=== PATIENT | male | born 1955 | race Caucasian/White ===

== ENCOUNTER 2017-10-19 18:14 | Emergency (ER) | payer SELFPAY ==
[2017-10-19] MEDS ORDERED: Acetaminophen/oxyCODONE 325-5 MG Tab PO ONE (18:35)
--- NOTE | 2017-10-19 20:27 | EDM.PDOC ---
ED HPI GENERAL MEDICAL PROBLEM - General Chief Complaint: Upper Extremity Injury/Pain Stated Complaint: BROKEN COLLAR BONE Time Seen by Provider: 10/19/17 18:27 Source of Information: Reports: Patient, RN Notes Reviewed - History of Present Illness INITIAL COMMENTS - FREE TEXT/NARRATIVE: 62 year old male got bucked off of horse, severe R clavicular pain. severe pain with motion of RUE. some pain R back just below scapula. Does not feel short of breath. Neck feels very mildly stiff. No Olivera, no LOC, no abd pain, nausea or vomiting. Treatments TRANSPLANT COORDINATOR: Reports: Other (see below) Other Treatments TRANSPLANT COORDINATOR: sling right shoulder/arm Pain Score (Numeric/FACES): 6 - Related Data Allergies Allergy/AdvReac Type Severity Reaction Status Date / Time No Known Allergies Allergy Verified 10/19/17 18:27 Home Meds: Home Meds oxyCODONE HCl/Acetaminophen [Percocet 5-325 mg Tablet] 1 each PO Q6HR PRN #20 tablet 10/19/17 [Rx] Past Medical History - Past Health History Medical/Surgical History: Denies Medical/Surgical History Musculoskeletal History: Reports: Other (See Below) Other Musculoskeletal History: multiple broken bones - Past Surgical History HEENT Surgical History: Reports: Tonsillectomy Musculoskeletal Surgical History: Reports: Other (See Below) Other Musculoskeletal Surgeries/Procedures:: titanium maria luisa to right leg Social & Family History - Family History Family Medical History: Noncontributory - Tobacco Use Smoking Status *Q: Never Smoker - Caffeine Use Caffeine Use: Reports: Coffee - Recreational Drug Use Recreational Drug Use: No Review of Systems - Review of Systems Review Of Systems: See Below Constitutional: Reports: No Symptoms Eyes: Reports: No Symptoms Ears: Reports: No Symptoms Nose: Reports: No Symptoms Mouth/Throat: Reports: No Symptoms Respiratory: Denies: Shortness of Breath, Pleuritic Chest Pain Cardiovascular: Denies: Chest Pain GI/Abdominal: Denies: Abdominal Pain, Nausea, Vomiting Musculoskeletal: Reports: Arm Pain, Joint Pain (medial to R shoulder, R mid scapula). Denies: Neck Pain, Leg Pain Skin: Reports: Bruising (mid scapula) Neurological: Denies: Dizziness, Headache, Numbness, Syncope, Tingling, Trouble Speaking, Difficulty Walking, Weakness ED EXAM, GENERAL - Physical Exam Exam: See Below General Appearance: Alert, Moderate Distress Eye Exam: Bilateral Eye: PERRL Ear Exam: Bilateral Ear: Auricle Normal Nose: Normal Inspection Throat/Mouth: Normal Inspection Head: Atraumatic. No: Facial Swelling Neck: Supple, Full Range of Motion. No: Tender Lateral, Tender Midline Respiratory/Chest: No Respiratory Distress, Lungs Clear, Normal Breath Sounds Cardiovascular: Regular Rate, Rhythm GI/Abdominal: Soft, Non-Tender Back Exam: Other (there is tenderness of the R back just below the scapula). No : Paraspinal Tenderness, Vertebral Tenderness Extremities: Other (moderate tenderness of R mid scapula, swelling, bruising present) Neurological: Oriented, No Motor/Sensory Deficits Skin Exam: Warm, Dry, Normal Color Course - Vital Signs Last Recorded V/S: Last Vital Signs Temp 98.3 F 10/19/17 18:20 Pulse 63 10/19/17 18:20 Resp 18 10/19/17 18:20 BP 148/109 H 10/19/17 18:20 Pulse Ox 98 10/19/17 18:20 - Orders/Labs/Meds Orders: Active Orders 24 hr Category Date Time Status Communication Order [RC] STAT Care 10/19/17 20:14 Active Chest 1V Frontal [CR] Stat Exams 10/19/17 18:36 Taken Clavicle Rt [CR] Stat Exams 10/19/17 18:36 Taken Meds: Medications Discontinued Medications Generic Name Dose Route Start Last Admin Trade Name Luisa PRN Reason Stop Dose Admin Oxycodone/Acetaminophen 1 tab 10/19/17 18:35 10/19/17 18:43 Percocet 325-5 Mg PO 10/19/17 18:36 1 tab ONETIME ONE Administration - Re-Assessments/Exams Free Text/Narrative Re-Assessment/Exam: 10/19/17 22:31 comminuted fx R clavicle, see Radiology report for details, CXR nl, discharge instr. as documented. Departure - Departure Time of Disposition: 20:21 Disposition: Home, Self-Care 01 Condition: Fair Clinical Impression: Fracture of clavicle Qualifiers: Encounter type: initial encounter Clavicle location: shaft Fracture type: closed Fracture alignment: displaced Laterality: right Qualified Code(s): S42.021A - Displaced fracture of shaft of right clavicle, initial encounter for closed fracture - Discharge Information Prescriptions: oxyCODONE HCl/Acetaminophen [Percocet 5-325 mg Tablet] 1 each PO Q6HR PRN #20 tablet PRN Reason: Pain Instructions: Clavicle Fracture, [id number] Referrals: PCP,None [Primary Care Provider] - Forms: ED Department Discharge Additional Instructions: sling and swathe R arm, ice packs several times daily for swelling. Avoid lifting R arm, avoid further injury. See Dr Morales, Orthopedist tomorrow or Tuesday if possible, call [phone] tomorrow morning for first available appt. Tylenol for mild to moderate pain or percocet for severe pain. If the full dose percocet seems like too much you can try taking 1/2 tablet q 6 to 8 hr as needed. - My Orders Last 24 Hours: My Active Orders 10/19/17 18:36 Chest 1V Frontal [CR] Stat Clavicle Rt [CR] Stat 10/19/17 20:14 Communication Order [RC] STAT - Assessment/Plan Last 24 Hours: My Active Orders 10/19/17 18:36 Chest 1V Frontal [CR] Stat Clavicle Rt [CR] Stat 10/19/17 20:14 Communication Order [RC] STAT
--- NOTE | 2017-10-20 10:19 | CR ---
Chest: Frontal view of the chest was obtained. Comparison: No prior chest x-ray. Heart size is normal. Upper mediastinum is normal. Right clavicle fracture is seen which shows mild displacement. Slight deformity to several right-sided ribs which is believed to represent old healed fractures. Lungs are clear without acute parenchymal densities. Impression: 1. Right clavicle fracture. Please correlate if this is acute. 2. Several old appearing healed rib fractures on the right side. 3. Nothing acute is otherwise seen on frontal chest x-ray. Diagnostic code #3
--- NOTE | 2017-10-20 10:19 | CR ---
Right clavicle: Two views of the right clavicle were obtained. Slightly comminuted and displaced mid right clavicle fracture is noted. No callus is seen. Acromioclavicular alignment appears within normal limits. No additional abnormality is seen. Impression: 1. Right clavicle fracture as noted above. Diagnostic code #3
== END 2017-10-19 20:43 | disposition home or self-care (01) ==
LOC: JD.ED 18:14
DX: S42.021A Displaced fracture of shaft of right clavicle, initial encounter for closed fracture (principal); V80.010A Animal-rider injured by fall from or being thrown from horse in noncollision accident, initial encounter
CPT/HCPCS: 71045; 73000; 99283; A9270

== ENCOUNTER 2017-10-25 07:05 | Day surgery (SDC) | payer SELFPAY ==
--- NOTE | 2017-10-24 10:27 | HP ---
DATE OF ADMISSION: 10/25/2017 HISTORY: This is the first orthopedic admission to [facility] for this 62-year- old male who is being evaluated for surgical correction of a severely displaced fragment and a right clavicle fracture. The patient suffered the injury on October 19 secondary to a horse accident. The patient was then seen through the Orthopedic Clinic. I went over x-rays with the patient and the surgical procedure. He understands and has consented to surgery. ALLERGIES: No known drug allergies. CURRENT MEDICATIONS: A healthy 62-year-old male, currently on no medications. PAST MEDICAL HISTORY: Has a negative bleeding history and negative blood clot history. PAST SURGICAL HISTORY: Positive. He had a positive surgical plate fixation of a right ankle injury with no anesthesia complications. SOCIAL HISTORY: nonsmoker. Alcohol is infrequent. PHYSICAL EXAMINATION: GENERAL: Today, reveals a well-developed, well-nourished, 62-year-old male in moderate distress. HEAD, EYES, EARS, NOSE AND THROAT: Normocephalic. NECK: Supple. CHEST: Clear. COR: Regular rate. ABDOMEN: Soft. : Intact. EXTREMITIES: Examination of the right shoulder reveals positive pain to pressure over the midshaft, right clavicle area, positive hematoma, ecchymosis formation and swelling noted about the fracture. RADIOLOGY: X-rays reviewed shows a midshaft fracture of right clavicle with significant displacement and tenting, positive fragmentation, comminution. OVERALL IMPRESSION: Fracture, right clavicle, unstable. PLAN: Plan is for the patient to undergo surgical open reduction and internal fixation of the clavicle fracture. Procedure has been outlined to him. He understands procedure and has consented to it. ERLIN /[id number]
[~2017-10-25 07:05] MED LIST: Lactated Ringers 1,000 ML IV SCH; Lidocaine 1%/Sod Bicarbonate in NS 8.4% 1 ML Syringe IDERM PRN; Sodium Chloride 0.9% 10 ML Syringe FLUSH PRN
[2017-10-25] MEDS ORDERED: Propofol 200 MG/20 ML SDV ONE (07:16)
[2017-10-25] MEDS ORDERED: Lactated Ringers 1,000 ML ONE ×4 (07:16→11:03)
[2017-10-25] MEDS ORDERED: Dexamethasone 4 MG/ML SDV ONE ×2 (07:16→09:05)
[2017-10-25] MEDS ORDERED: Rocuronium 50 MG/5 ML Vial ONE (07:16)
[2017-10-25] MEDS ORDERED: Midazolam 1 MG/ML 2 ML SDV ONE (07:16)
[2017-10-25] MEDS ORDERED: ceFAZolin 1 GM Vial ONE (07:16)
[2017-10-25] MEDS ORDERED: fentaNYL 250 MCG/5 ML SDV ONE (07:17)
[2017-10-25] MEDS ORDERED: Lidocaine 1% 4 ML ONE (07:17)
[2017-10-25] MEDS ORDERED: Ondansetron 4 MG/2 ML SDV ONE (07:21)
[2017-10-25] MEDS ORDERED: Ketorolac 30 MG/ML SDV ONE ×2 (07:21→09:05)
--- NOTE | 2017-10-25 07:54 | PCM.PREANE ---
Preanesthetic Assessment - Procedure Proposed Procedure: ORIF right clavicle fracture - Anesthesia/Transfusion/Family Hx Anesthesia History: Prior Anesthesia Without Reaction Family History of Anesthesia Reaction: No Transfusion History: No Prior Transfusion(s) - Review of Systems General: No Symptoms Pulmonary: No Symptoms Cardiovascular: No Symptoms Gastrointestinal: No Symptoms Neurological: No Symptoms Other: Reports: Neck Pain (Neck is sore from fall. Has full extension. ) - Physical Assessment NPO Status Date: 10/24/17 NPO Status Time: 21:00 O2 Sat by Pulse Oximetry: 97 Respiratory Rate: 16 Vital Signs: Last Vital Signs Temp Pulse 62 10/25/17 07:05 Resp 16 10/25/17 07:05 BP 134/80 10/25/17 07:05 Pulse Ox 97 10/25/17 07:05 Height: 1.87 m Weight: 102.965 kg ASA Class: 2 Mental Status: Alert & Oriented x3 Airway Class: Mallampati = 2 Dentition: Reports: Partial (Upper) Thyro-Mental Finger Breadths: 3 Mouth Opening Finger Breadths: 3 ROM/Head Extension: Full Lungs: Clear to Auscultation, Normal Respiratory Effort Cardiovascular: Regular Rate, Regular Rhythm - Allergies Allergies/Adverse Reactions: Allergies Allergy/AdvReac Type Severity Reaction Status Date / Time No Known Allergies Allergy Verified 10/25/17 07:47 - Anesthesia Plan Pre-Op Medication Ordered: Anxiolytic - Acknowledgements Anesthesia Type Planned: General Anesthesia Pt an Appropriate Candidate for the Planned Anesthesia: Yes Alternatives and Risks of Anesthesia Discussed w Pt/Guardian: Yes Pt/Guardian Understands and Agrees with Anesthesia Plan: Yes PreAnesthesia Questionnaire - Past Health History Medical/Surgical History: Denies Medical/Surgical History Musculoskeletal History: Reports: Other (See Below) Other Musculoskeletal History: multiple broken bones - Past Surgical History HEENT Surgical History: Reports: Tonsillectomy Musculoskeletal Surgical History: Reports: Arthroscopic Knee, Other (See Below) Other Musculoskeletal Surgeries/Procedures:: titanium maria luisa to right leg, left ankle surgery, - SUBSTANCE USE Smoking Status *Q: Never Smoker Recreational Drug Use History: No - HOME MEDS Home Medications: Home Meds oxyCODONE HCl/Acetaminophen [Percocet 5-325 mg Tablet] 1 each PO Q6HR PRN #20 tablet 10/19/17 [Rx] - CURRENT (IN HOUSE) MEDS Current Meds: Current Medications Lactated Ringer's (Ringers, Lactated) 1,000 mls @ 125 mls/hr IV ASDIRECTED ЕЛЕНА Stop: 10/25/17 23:00 Last Admin: 10/25/17 07:30 Dose: 125 mls/hr Lidocaine/Sodium Bicarbonate (Buffered Lidocaine 1% In Ns 8.4%) 0.25 ml IDERM ONETIME PRN PRN Reason: Prior to IV Start Stop: 10/25/17 18:00 Last Admin: 10/25/17 07:29 Dose: 0.25 ml Sodium Chloride (Saline Flush) 10 ml FLUSH ASDIRECTED PRN PRN Reason: Keep Vein Open Stop: 10/25/17 18:00 Discontinued Medications Bupivacaine HCl/Epinephrine Bitart (Marcaine 0.5%/Epinephrine 1:200,000) Confirm Administered Dose 50 ml .ROUTE .STK-MED ONE Stop: 10/25/17 07:25 Cefazolin Sodium (Ancef) Confirm Administered Dose 2 gm .ROUTE .STK-MED ONE Stop: 10/25/17 07:17 Dexamethasone (Dexamethasone) Confirm Administered Dose 4 mg .ROUTE .STK-MED ONE Stop: 10/25/17 07:17 Fentanyl (Sublimaze) Confirm Administered Dose 250 mcg .ROUTE .STK-MED ONE Stop: 10/25/17 07:18 Lactated Ringer's (Ringers, Lactated) Confirm Administered Dose 1,000 mls @ as directed .ROUTE .STK-MED ONE Stop: 10/25/17 07:17 Lidocaine HCl (Xylocaine-Mpf 1%) Confirm Administered Dose 4 mls @ as directed .ROUTE .STK-MED ONE Stop: 10/25/17 07:18 Iodine (Iodine 2% Mild Tincture) Confirm Administered Dose 30 ml .ROUTE .STK- MED ONE Stop: 10/25/17 07:25 Ketorolac Tromethamine (Toradol) Confirm Administered Dose 30 mg .ROUTE .STK- MED ONE Stop: 10/25/17 07:22 Midazolam HCl (Versed 1 Mg/Ml) Confirm Administered Dose 2 mg .ROUTE .STK-MED ONE Stop: 10/25/17 07:17 Ondansetron HCl (Zofran) Confirm Administered Dose 4 mg .ROUTE .STK-MED ONE Stop: 10/25/17 07:22 Propofol (Diprivan 20 Ml) Confirm Administered Dose 400 mg .ROUTE .STK-MED ONE Stop: 10/25/17 07:17 Rocuronium [place] (Zemuron) Confirm Administered Dose 50 mg .ROUTE .STK-MED ONE Stop: 10/25/17 07:17
[2017-10-25] MEDS ORDERED: Acetaminophen/oxyCODONE 325-5 MG Tab PO PRN (08:14)
[2017-10-25] MEDS ORDERED: Cyclobenzaprine 10 MG Tab PO PRN (08:14)
[2017-10-25] MEDS ORDERED: Ondansetron 4 MG/2 ML SDV IVPUSH PRN ×2 (08:14→09:36)
[2017-10-25] MEDS ORDERED: Ketorolac 15 MG/ML SDV IVPUSH PRN (08:14)
[2017-10-25] MEDS ORDERED: Morphine 15 MG Tab.ER PO SCH (08:15)
[2017-10-25] MEDS: Iodine/Sodium Iodide 2% Tincture 30 ML Bottle ONE ×2 (08:18→10:19)
[2017-10-25] MEDS: Bupivacaine 0.5%/EPINEPHrine 1:200,000 50 ML MDV ONE ×2 (08:18→11:06)
[2017-10-25] MEDS ORDERED: HYDROmorphone 0.5 MG/0.5 ML Syringe ONE ×2 (09:01→09:22)
[2017-10-25] MEDS ORDERED: Ketamine 500 mg/10 ML MDV ONE (09:05)
[2017-10-25] MEDS ORDERED: diphenhydrAMINE 50 MG/ML SDV IVPUSH PRN (09:36)
[2017-10-25] MEDS ORDERED: HYDROmorphone 0.5 MG/0.5 ML Syringe IVPUSH PRN (09:36)
[2017-10-25] MEDS ORDERED: fentaNYL 100 MCG/2 ML SDV IVPUSH PRN (09:36)
[2017-10-25] MEDS ORDERED: Meperidine PF 50 MG/ML Syringe IVPUSH PRN (09:36)
[2017-10-25] MEDS ORDERED: Phenylephrine 1% 10 MG/ML SDV ONE (09:39)
--- NOTE | 2017-10-25 11:36 | PCM.POSTAN ---
POST ANESTHESIA ASSESSMENT - MENTAL STATUS Mental Status: Somnolent - VITAL SIGNS Pulse Rate: 88 SaO2: 95 Resp Rate: 12 Blood Pressure: 137/83 Temperature: 36.8 C - RESPIRATORY Respiratory Status: Respiratory Rate WNL, Airway Patent, O2 Saturation Stable, Supplemental Oxygen - CARDIOVASCULAR CV Status: Pulse Rate WNL, Blood Pressure Stable - GASTROINTESTINAL GI Status: No Symptoms - PAIN Pain Score: 0 - POST OP HYDRATION Hydration Status: Adequate & Stable
--- NOTE | 2017-10-25 11:52 | CR ---
Right clavicle: Three fluoroscopic spot views were obtained of the right clavicle utilizing C-arm device. Comparison: Prior right clavicle study of 10/19/17. Previous clavicle fracture has been reduced and affixed with plate and screws. Fluoroscopy time is given as 15.2 seconds. Impression: 1. Reduction and fixation of previous clavicle fracture. Diagnostic code #2
--- NOTE | 2017-10-25 13:11 | PCM48HPAN ---
Post Anesthesia Note - EVALUATION WITHIN 48HRS OF ANESTHETIC Vital Signs in Normal Range: Yes Patient Participated in Evaluation: Yes Respiratory Function Stable: Yes Airway Patent: Yes Cardiovascular Function Stable: Yes Hydration Status Stable: Yes Pain Control Satisfactory: Yes Nausea and Vomiting Control Satisfactory: Yes Mental Status Recovered: Yes
--- NOTE | 2017-10-26 08:14 | OR ---
DATE OF OPERATION: 10/25/2017 SURGEON: Chin Clark MD PREOPERATIVE DIAGNOSIS: Comminuted midshaft fracture of right clavicle, displaced. POSTOPERATIVE DIAGNOSIS: Comminuted midshaft fracture of right clavicle, displaced. ANESTHESIA: General. OPERATION PERFORMED: Open reduction and internal fixation of right clavicle fracture by plate fixation and fixation of a butterfly fragment. DESCRIPTION OF PROCEDURE: The patient was taken to the operating room in supine position and placed under general anesthesia, was then placed in the beach chair position approximately 60 degrees. Once in position, the operation proceeded with prepping and draping of the right shoulder in and around the surgical site and on the neck and down the arm according to standard fashion. After prepping and draping, the operation proceeded with palpation of the clavicle. The patient had a significantly superior displaced proximal fragment and depressed distal fragment. The incision was a curved incision, centering on the proximal fragment near the sternum and centered over the clavicle near the AC joint. The curved then was carried out to recreate the gentle curve of the clavicle. Penetration was made through the skin and subcutaneous tissues. Bleeding was controlled with electrocautery. Once the clavicle was exposed, soft tissues then dissected in periosteum by using a periosteal elevator on the distal and proximal portion. The patient appeared to have a previously old fracture clavicle that showed significant scarring in and around the clavicle area on the distal fragment portion right near the fracture site itself. This needed a little extra exposure but once that was completed, there was a large butterfly fragment coming off the superolateral type side and also several multiple very small fragments on the posteroinferior side. The clavicle after exposure and removal, hematoma was then reduced into position. There was significant tightness on the clavicle due to the muscle retraction with the patient but once the clavicle was brought into approximate position forward for plating, it was then held in place by a screw fixation for an 8-hole plate. The 1st screw was then placed just medial to the area of the comminution and the butterfly fragment to hold the plate in position. The plate was then placed down on the proximal fragment and then by using our manipulation and K-wires using the K-wire holes on the plate, the distal fragment was then approximated to the proximal fragment and then held in place with the K-wires and bone clamp and once that was accomplished, a 2nd screw was then placed on the distal fragment to hold the plate in relatively good position. With the bone clamp holding the fracture together and the K- wires, the operation was proceeded with screw fixation of the plate on the more medial proximal fragment and then also in the distal fragment using locking screw interrupted. Once the plate was fixated with the screws, the operation proceeded then with addressing the butterfly fragment. This was a long skinny- type fragment in that anterior inferior position and it was opted that we would use a bone graft. The putty-type bone graft was then placed into the wound in the fracture area on the superior or inferior surface and packed into the fracture cleft. Then with the butterfly fragment was then reduced into the position using #5 FiberWire in a cerclage fashion. The fragment was then held in place to compress the bone graft into the fracture site itself, completing the reduction and also fixation of the fracture clavicle. Once that was completed, the rest of the screw holes were then filled. The patient's arm was then checked with motion and was found to be stable. No movement or any changes developed with the fracture with the plate holding securely. The irrigation was then carried out with thorough irrigation of the wound. Deep fascia tissues were closed with #1 Vicryl, subcutaneous tissue with 2-0 Vicryl and skin with skin rodriguez. Standard dressings were applied to the shoulder and the patient was placed in a right shoulder immobilizer. The patient tolerated the procedure well. He left the operating room in stable condition to his room for recovery. ESTIMATED BLOOD LOSS: ERLIN /[id number] SAMI
== END 2017-10-25 13:42 | disposition home or self-care (01) ==
LOC: JD.SDS 07:05
PROVIDERS: ATTEND Specialist
DX: S42.021A Displaced fracture of shaft of right clavicle, initial encounter for closed fracture (principal); W55.19XA Other contact with horse, initial encounter
CPT/HCPCS: 23515; 76000; A9270; C1713; J0690; J1100; J1170; J1885; J2001; J2250; J2370; J2405; J3010; J7120; 00450; J2704

== ENCOUNTER 2019-02-20 14:12 | Emergency (ER) | payer OTHER ==
[2019-02-20] MEDS ORDERED: Sodium Chloride 0.9% 10 ML Syringe FLUSH PRN (14:17)
[2019-02-20] MEDS ORDERED: Iopamidol 612 MG/ML 100 ML Bottle IVPUSH ONE (14:33)
[2019-02-20] MEDS ORDERED: Sodium Chloride 0.9% 10 ML Syringe FLUSH ONE (14:33)
--- NOTE | 2019-02-20 14:43 | PCM.SN ---
- Free Text/Narrative Note: 1415 Called to [facility] assist with patient assessment. Lab draw. Out of room at 1430.
--- NOTE | 2019-02-20 15:49 | CT ---
CT chest Technique: Multiple axial sections were obtained from above the lung apices inferiorly through the lung bases. Intravenous contrast was utilized. Comparison: Prior chest x-ray of 10/19/17 is available. Findings: Mediastinum and hilar regions appear within normal limits. No aneurysm is seen. No mediastinal adenopathy is seen. Soft tissue swelling is seen around the lower sternum. There is minimal cortical irregularity in this region which is felt compatible with nondisplaced distal sternal fracture. No pericardial fluid is seen. No pneumothorax is identified. No pleural effusions are seen. Increased density within both lung bases are seen posteriorly most likely due to atelectasis. Plate and screws affix an old right clavicle fracture. Slight deformity is seen within the lateral 7th through 9th ribs compatible with nondisplaced fractures. Possible fracture within the 10th rib. Possible nondisplaced fracture within the left 4th rib. No additional rib abnormality is appreciated. Old ununited fracture is noted within the left anterior 3rd rib. Slight compression deformities are seen within the spine with no acute fracture line and these presumably are old. Impression: 1. Nondisplaced lower sternal fracture with surrounding soft tissue swelling. 2. 3 and possibly 4 right rib fractures seen on the right side. Possible single left sided rib fracture. 3. Mild atelectasis is seen posteriorly within both bases. 4. No pneumothorax or pleural effusions are seen. 5. Old ununited left 3rd rib fracture is seen anteriorly. Diagnostic code #3 CT abdomen and pelvis Technique: Multiple axial sections were obtained from above the dome of the diaphragm inferiorly through the pubic symphysis. Intravenous contrast was utilized. No oral contrast has been given. Comparison: No prior abdominal imaging. Findings: Liver contains no focal abnormality. Cyst is noted within the spleen measuring 3.0 cm which is most likely benign. Small hiatal hernia is seen. Adrenal glands show no nodule. Kidneys show symmetric contrast enhancement without hydronephrosis or mass. Pancreas is within normal limits. Gallbladder contains no calcified gallstones. Aorta shows no aneurysm. No retroperitoneal adenopathy or mesenteric abnormalities are seen. No pelvic mass or adenopathy is seen. Delayed images shows contrast excretion from both kidneys into nondilated ureters as well as contrast within the bladder. No contrast extravasation is seen. Appendix not visualized with certainty. Slight compression deformities are seen within L2, L3 and L4. No definite acute fracture lines are seen and these may be old. Old pelvic rami fractures are seen. Compression screw is noted within the right hip. No definite acute pelvic fracture is appreciated. Impression: 1. Findings as noted above compatible with old trauma as well as other findings believed to be incidental. No acute intra-abdominal or intrapelvic abnormality is seen. Diagnostic code #3
[2019-02-20] MEDS ORDERED: HYDROmorphone 0.5 MG/0.5 ML Syringe IVPUSH ONE (15:59)
--- NOTE | 2019-02-20 16:10 | CT ---
Head CT Technique: Multiple axial sections through the brain were obtained. Intravenous contrast was not utilized. Comparison: No previous intracranial imaging. Small areas of subcutaneous hematoma is seen within the anterior scalp. Scalp injury is also noted with soft tissue air within the scalp. Ventricles along with basal cisterns and sulci over the convexities are within normal limits for the patient's age. No abnormal parenchymal densities are seen. No evidence of intracranial hemorrhage. No midline shift or mass effect is seen. No calvarial fracture is seen. Visualized paranasal sinuses shows mild mucosal thickening/lobulated retention cyst within the left maxillary sinus. Mastoid sinuses are clear. Nasal bone fracture is seen. I believe that this is most likely old as the margins are somewhat smooth. Impression: 1. Mild scalp hematomas anteriorly. Scalp injury is also noted anteriorly. 2. No acute intracranial abnormality is seen. No skull fracture is identified. 3. Left maxillary sinus finding which is pre-existing and chronic. Diagnostic code #3
--- NOTE | 2019-02-20 16:10 | CT ---
CT cervical spine Technique: Multiple axial sections were obtained from above C2 inferiorly to the mid T2 level. Reconstructed sagittal and coronal images were reviewed. Comparison: No prior cervical spine imaging. Findings: Posterior disc space narrowing is seen at C4-5 and C5-6. Mild anterior wedging is noted of C7 which appears to be old as no acute fracture line is seen. Degenerative change is noted between the dens and anterior arch of C1. Fracture is seen within the articular pillar on the right side at C3 which involves the apophyseal joint. This fracture is slightly comminuted. No additional fracture is seen within the posterior ring at this level. The right apophyseal joint is slightly widened at this level which is felt compatible with probable capsular rupture. No additional cervical spine fracture is seen. Ligamentum nuchal calcification is seen. Impression: 1. Slightly comminuted fracture involving the articular pillar on the right side at C3 which involves the apophyseal joint. Apophyseal joint on the right side is slightly widened compatible with capsular rupture. No other fracture is seen within the posterior ring at this level. 2. Degenerative change as noted above. Incidental ligamentum nuchal calcification. 3. Anterior wedging of C7 without acute fracture line and this is most likely old. 4. No other acute abnormality is seen. Diagnostic code #5
[2019-02-20] MEDS ORDERED: Lidocaine 1% 20 ML MDV INJECT ONE (16:50)
[2019-02-20] MEDS ORDERED: Lidocaine 1% 50 ML MDV ONE (16:55)
[2019-02-20] MEDS ORDERED: Lidocaine 1% 50 ML MDV INJECT ONE (16:58)
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
== END 2019-02-20 19:01 | disposition home or self-care (01) ==
LOC: JD.ED 14:12
DX: S22.41XA Multiple fractures of ribs, right side, initial encounter for closed fracture (principal); S12.200A Unspecified displaced fracture of third cervical vertebra, initial encounter for closed fracture; S22.22XA Fracture of body of sternum, initial encounter for closed fracture; S01.01XA Laceration without foreign body of scalp, initial encounter; S30.811A Abrasion of abdominal wall, initial encounter; V95.9XXA Unspecified aircraft accident injuring occupant, initial encounter
CPT/HCPCS: 12005; 36415; 70450; 71260; 72125; 74177; 80053; 80320; 83690; 85025; 96374; 99285; J1170; J2001; Q9967; 99284; G0480

== ENCOUNTER 2021-05-11 18:18 | Emergency (ER) | payer SELFPAY ==
[2021-05-11] MEDS ORDERED: Lidocaine 1% with EPINEPHrine 1:100,000 20 ML MDV INJECT ONE (19:09)
[2021-05-11] MEDS ORDERED: Bupivacaine 0.5% 10 ML SDV INJECT ONE (19:09)
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
== END 2021-05-11 20:50 | disposition home or self-care (01) ==
LOC: JD.ED 18:18
DX: S01.81XA Laceration without foreign body of other part of head, initial encounter (principal); W55.22XA Struck by cow, initial encounter
CPT/HCPCS: 12013; 99283; J3490